=== PATIENT | male | born 1970 | race Two or more races ===

== ENCOUNTER 2023-12-11 22:11 | Emergency (ER) | payer MEDICAID, OTHER ==
[~2023-12-11] VITALS: Ht 172.7 cm; Wt 52.3 kg
[2023-12-11 23:27] LABS: Basophils # (auto) 0.1 10 ^3/uL (0-0.2); Basophils % (auto) 0.6 % (0.0-2.0); Eosinophils # (auto) 0 10 ^3/uL (0-0.8); Eosinophils % (auto) 0.3 % (0.0-7.0); Hematocrit 39.8 % (41.0-53.0); Hemoglobin 13.7 g/dL (13.5-17.5); Lymphocytes # (auto) 3.1 10 ^3/uL (0.4-5.4); Lymphocytes % (auto) 23.7 % (10.0-50.0); Mean Corpuscular Hemoglobin 33.1 pg (28.0-32.0); Mean Corpuscular Hgb Conc. 34.3 g/dL (32.0-36.0); Mean Corpuscular Volume 96.6 fL (80.0-100.0); Monocytes # (auto) 1.3 10 ^3/uL (0-1.3); Monocytes % (auto) 10.5 % (0.0-12.0); Neutrophils # (auto) 8.4 10 ^3/uL (1.6-8.6); Neutrophils % (auto) 64.9 % (37.0-80.0); Platelet Count (auto) 303 10^3/uL (140-450); Red Blood Cells 4.12 10^6/uL (4.5-5.90); Red Cell Distribution Width 14.4 % (11.8-14.3); White Blood Cell 12.9 10^3/uL (4.4-10.8)
[2023-12-11 23:47] VITALS: BP 107/65; PULSE 78; RESP 18; TEMP 98.3; O2SAT 98
[2023-12-12] MEDS ORDERED: LEVO500T91 PO (00:16)
[2023-12-12] MEDS ORDERED: IBUP-1456 PO (00:16)
[2023-12-12] MEDS: cefTRIAXone SOD 1,000 MG VL IM ONE (00:16)
[2023-12-12 00:20] LABS: Urine Bacteria None Seen /hpf (None Seen)
[2023-12-12 00:30] LABS: Urine Blood Negative /uL (Negative); Urine Clarity Clear (Clear); Urine Color Yellow (Yellow); Urine Mucus FEW (None Seen); Urine Protein, UAD TRACE (Negative); Urine Specific Gravity 1.033 (1.001-1.035); Urine Urobilinogen 3 mg/dL (Negative); Urine WBC 2 /hpf (0 - 3); Urine pH 5.5 (5.0-9.0)
== END 2023-12-12 00:56 | disposition home or self-care (01) ==
LOC: ER 22:11
DX: N45.1 Epididymitis (principal); F17.210 Nicotine dependence, cigarettes, uncomplicated; Z79.899 Other long term (current) drug therapy; Z98.890 Other specified postprocedural states
CPT/HCPCS: 36415; 76870; 81001; 85025; 96372; 99285; J0696

== ENCOUNTER 2024-10-05 20:59 | Emergency (ER) | payer MEDICAID ==
[~2024-10-05] VITALS: Ht 172.7 cm; Wt 54.5 kg
[~2024-10-05 20:59] MED LIST: IBUP-1456 PO; LEVO500T91 PO
[2024-10-05 21:24] VITALS: BP 97/69; PULSE 84; RESP 16; TEMP 98.1; O2SAT 96
--- NOTE | 2024-10-05 22:13 | DVH ---
CLINICAL INDICATION: Distal thumb injury TECHNIQUE: XY L HAND 3V XRAY Comparison: None FINDINGS/IMPRESSION: : Disruption of the nail bed with gas identified within the base of the nail. There is no evidence of a cute fracture or dislocation. Soft tissues are unremarkable. No evidence of radiodense foreign bodies.
[2024-10-05] MEDS ORDERED: AUG875T PO (22:20)
--- NOTE | 2024-10-05 22:21 | ED.PDOC ---
Back pain HPI HPI Comments PT STATES HE SMASHED HIS LEFT THUMB 2 DAYS AGO. PT IS CONCERNED WITH INFECTION AFTER PUS HAS BEEN COMING OUT OF NAIL ON Chief Complaint: Upper Extremity Time Seen by MD: 21:17 Primary Care Provider: LORI GONZALES [facility] Notes: Nurses Notes, Medications, Allergies Allergies: Coded Allergies: NO KNOWN ALLERGIES (Unverified , 12/11/23) Home Meds Active Scripts Amoxicillin & Pot Clavulanate (AUGMENTIN TABLET) 875 Mg Tb, 875 MG PO BID for 7 Days, #14 TAB Prov:CHARLIE MEREDITH 10/05/24 Ibuprofen (Ibuprofen) 800 Mg Tab, 1 TAB PO TID PRN, #30 TAB 0 Refills Prov:[place] JIMENES 12/12/23 Levofloxacin Hemihydrate (LEVOFLOXACIN) 500 Mg Tab, 1 TAB PO DAILY for 10 Days, #10 TAB 0 Refills Prov:[place] JIMENES 12/12/23 Information Source: Patient Mode of Arrival: Ambulatory Past Medical History PAST MEDICAL HISTORY: Denies Surgical History: Hernia Repair Family History Family History: Unknown Social History Smoker: Cigarettes, Less Than 1 Pack/Day Alcohol: Denies ETOH Use Drugs: Denies Drug Use Lives In: Home Physical Exam General Appearance: No Apparent Distress, Normal HEENT: Pharynx Normal Neck: Full Range of Motion, Non-Tender Respiratory: Lungs Clear, No Respiratory Distress, Normal Breath Sounds Cardiovascular: No Murmur, Normal Peripheral Pulses, Regular Rate/Rhythm Breast Exam: Deferred Gastrointestinal: Non Tender, Soft Genitalia: Deferred Pelvic: Deferred Rectal: Deferred Extremities: Normal capillary refill, Normal range of motion Musculoskeletal : Apperance: Normal Neurologic: Alert, No Motor Deficits, Normal Affect, Normal Mood, No Sensory Deficits Cerebellar Function: Normal Reflexes: Normal Skin: Dry, Normal Color, Warm, Wounds (Left 1st digit distal aspect noted ecchymosis trace edema nail partially intact no noted bleeding or drainage strength sensory motion intact cap refill less than 3 seconds) Lymphatic: No Adenopathy Was a procedure done? Was a procedure done?: No Back Pain Differential Dx Differential Diagnosis: Fracture, Musculoskeletal Pain X-Ray, Labs, Meds, VS Vital Signs Date Time Temp Pulse Resp B/P (MAP) Pulse Ox O2 Delivery O2 Flow Rate FiO2 10/05/24 21:24 98.1 84 16 97/69 (78) 96 98.1 X-Ray, Labs, Meds, VS Comment TECHNIQUE: XY L HAND 3V XRAY Comparison: None FINDINGS/IMPRESSION: : Disruption of the nail bed with gas identified within the base of the nail. There is no evidence of acute fracture or dislocation. Soft tissues are unremarkable. No evidence of radiodense foreign bodies. No noted fracture on x-ray. We will script trial of antibiotics. Advised on rice. [id number] Tylenol or Motrin as needed for the pain per labeled dosing instructions. Advised not to pull nail off states we will fall off when ready. Advised to follow up with PCP in 2-3 days as necessary ER return precautions given patient indicates understanding and agrees with discharge plan of care. Time of 1ST Reevaluation: 21:17 Reevaluation 1ST: Unchanged Reevaluation 2ND: Improved Patient Education/Counseling: Diagnosis, Treatment, Prognosis, Need For Follow Up Family Education/Counseling: Diagnosis, Treatment, Prognosis, Need For Follow Up SEPSIS Sepsis Screen Date sepsis recognized/suspect: Oct 05, 2024 Time Sepsis recognized/suspect: 2123 Recent Procedure: No On Antibiotic Therapy: No Respiratory Rate >20: No Heart Rate >90: No Temp<36 C (96.8 F) or >38.3 C: No SBP <90 or MAP <65 mmHG: No New Acute Mental Status Change: No Is the patient on CPAP, BIPAP,: No Physician Orders L Hand 3v Xray (10/05/24 21:26) Vital Signs Date Time Temp Pulse Resp B/P (MAP) Pulse Ox O2 Delivery O2 Flow Rate FiO2 10/05/24 21:24 98.1 84 16 97/69 (78 96 98.1 Departure 1 Departure Time of Disposition: 22:18 Impression: Primary Impression: Contusion of left thumb with damage to nail Qualified Codes: S60.112A - Contusion of left thumb with damage to nail, initial encounter Disposition: HOME / SELF CARE / HOMELESS Condition: Stable e-Prescriptions Amoxicillin & Pot Clavulanate (AUGMENTIN TABLET) 875 Mg Tb 875 MG PO BID for 7 Days, #14 TAB Prov: CHARLIE MEREDITH 10/05/24 Discharged With: Spouse Critical Care Note Critical Care Time?: No Stability Stability form required: CHARLIE Sabillon Oct 05, 2024 22:21
== END 2024-10-05 22:33 | disposition home or self-care (01) ==
LOC: ER 20:59
DX: S60.112A Contusion of left thumb with damage to nail, initial encounter (principal); F17.210 Nicotine dependence, cigarettes, uncomplicated; Z98.890 Other specified postprocedural states; Z79.899 Other long term (current) drug therapy; X58.XXXA Exposure to other specified factors, initial encounter; Y93.9 Activity, unspecified; Y92.89 Other specified places as the place of occurrence of the external cause; Y99.8 Other external cause status
CPT/HCPCS: 73130